=== PATIENT | male | born 1970 | race Caucasian/White ===

== ENCOUNTER 2023-04-06 15:22 | Emergency (ER) | payer OTHER, SELFPAY ==
[2023-04-06] MEDS ORDERED: cefTRIAXone (ROCEPHIN) 500 MG VIAL ONE (16:20)
[2023-04-06] MEDS ORDERED: Lidocaine 1% PF 5 ML VIAL ONE (16:21)
== END 2023-04-06 16:50 | disposition home or self-care (01) ==
LOC: CSHERS 15:22
DX: S81.852A Open bite, left lower leg, initial encounter (principal); F17.210 Nicotine dependence, cigarettes, uncomplicated; W54.0XXA Bitten by dog, initial encounter
CPT/HCPCS: J0696

== ENCOUNTER 2025-01-30 11:39 | Emergency (ER) | payer SELFPAY | END 2025-01-30 12:35 | disposition home or self-care (01) | LOC: CSHERS 11:39 | DX: K04.7 Periapical abscess without sinus (principal); K02.9 Dental caries, unspecified; F17.210 Nicotine dependence, cigarettes, uncomplicated | CPT/HCPCS: 99282 ==